=== PATIENT | female | born 1950 | race Caucasian/White ===

== ENCOUNTER 2019-11-03 19:06 | Emergency (ER) | payer MEDICARE, OTHER ==
--- NOTE | 2019-11-03 21:01 | EDM.PDOC ---
ED HPI GENERAL MEDICAL PROBLEM - General Chief Complaint: Upper Extremity Injury/Pain Stated Complaint: FALL Time Seen by Provider: 11/03/19 19:06 Source of Information: Reports: Patient, Family History Limitations: Reports: No Limitations - History of Present Illness INITIAL COMMENTS - FREE TEXT/NARRATIVE: This is a 68yo F who fell at home and ran into the wall. She noticed severe left arm pain with movement immediately after the fall. She denies any other injuries but did bump her head and neck. She denies any PMH or medications. Onset: Sudden Location: Reports: Upper Extremity, Left Quality: Reports: Ache, Stabbing Severity: Severe (only with movement) Improves with: Reports: Immobilization Worsens with: Reports: Movement Associated Symptoms: Reports: No Other Symptoms Treatments STONEMASON SUPERVISOR: Reports: Other (see below) Other Treatments STONEMASON SUPERVISOR: iburprofen 200mg - Related Data Allergies Allergy/AdvReac Type Severity Reaction Status Date / Time No Known Allergies Allergy Verified 11/03/19 19:09 Home Meds: Home Meds NK [No Known Home Meds] 11/03/19 [History] Past Medical History Respiratory History: Reports: Other (See Below) Other Respiratory History: bronchiolitis obliterans Musculoskeletal History: Reports: Back Pain, Chronic - Past Surgical History Musculoskeletal Surgical History: Reports: Other (See Below) Other Musculoskeletal Surgeries/Procedures:: right radial head crushed with rods implanted Social & Family History - Tobacco Use Smoking Status *Q: Never Smoker Second Hand Smoke Exposure: Yes - Caffeine Use Caffeine Use: Reports: Tea - Recreational Drug Use Recreational Drug Use: No Review of Systems - Review of Systems Review Of Systems: Comprehensive ROS is negative, except as noted in HPI. ED EXAM, GENERAL - Physical Exam Exam: See Below Exam Limited By: No Limitations General Appearance: Alert, WD/WN, Moderate Distress Eye Exam: Bilateral Eye: EOMI, PERRL Ears: Normal External Exam Nose: Normal Inspection Throat/Mouth: Normal Inspection Head: Atraumatic, Normocephalic Neck: Normal Inspection Respiratory/Chest: No Respiratory Distress, Lungs Clear, Normal Breath Sounds Cardiovascular: Normal Peripheral Pulses, Regular Rate, Rhythm Peripheral Pulses: 2+: Brachial (L), Brachial (R), Radial (L), Radial (R), Dorsalis Pedis (L), Dorsalis Pedis (R) Extremities: Arm Pain (left proximal humerus pain) Neurological: Alert, Oriented, No Motor/Sensory Deficits Psychiatric: Normal Affect, Normal Mood Skin Exam: Warm, Dry, Intact Course - Vital Signs Last Recorded V/S: Last Vital Signs Temp 36.5 C 11/03/19 19:10 Pulse 85 11/03/19 19:10 Resp 16 11/03/19 19:10 BP 173/81 H 11/03/19 19:10 Pulse Ox 98 11/03/19 19:10 - Orders/Labs/Meds Orders: Active Orders 24 hr Category Date Time Status Humerus Lt [CR] Stat Exams 11/03/19 19:17 Taken Departure - Departure Time of Disposition: 20:30 Disposition: Home, Self-Care 01 Condition: Good Clinical Impression: Fracture of humerus Qualifiers: Encounter type: initial encounter Humerus Location: proximal Fracture type: closed Fracture morphology: other fracture Fracture alignment: displaced Laterality: left Qualified Code(s): S42.292A - Other displaced fracture of upper end of left humerus, initial encounter for closed fracture - Discharge Information Instructions: Humerus Fracture Treated With Immobilization, [id number] Forms: ED Department Discharge Additional Instructions: use splint x 3months. use tylenol/ibuprofen for pain. return to ER/clinic if you have any questions, require re-assessment for pain control Sepsis Event Note - Evaluation Sepsis Screening Result: No Definite Risk - Focused Exam Vital Signs: Vital Signs Temp Pulse Resp BP Pulse Ox 11/03/19 19:10 36.5 C 85 16 173/81 H 98 Date Exam was Performed: 11/03/19 Time Exam was Performed: 20:55 - Problem List & Annotations (1) Fracture of humerus SNOMED Code(s): 61704411 Code(s): S42.309A - UNSP FRACTURE OF SHAFT OF HUMERUS, UNSP ARM, INIT Status: Acute Qualifiers: Encounter type: initial encounter Humerus Location: proximal Fracture type: closed Fracture morphology: other fracture Fracture alignment: displaced Laterality: left Qualified Code(s): S42.292A - Other displaced fracture of upper end of left humerus, initial encounter for closed fracture - Problem List Review Problem List Initiated/Reviewed/Updated: Yes - My Orders Last 24 Hours: My Active Orders 11/03/19 19:17 Humerus Lt [CR] Stat - Assessment/Plan Last 24 Hours: My Active Orders 11/03/19 19:17 Humerus Lt [CR] Stat Plan: Consulted Dr. Theodore and images sent to [facility]. Dr. Theodore notes treatment and f/u with him in 1 week on Sunday. He notes that no other management needed except for cuff and collar. Dr. Theodore states he has reviewed the images and these are his recommendations. Discussed with patient and counseled on these instructions. F/u as needed and as directed. Rtc or ER if any changes to symptoms.
--- NOTE | 2019-11-04 09:05 | CR ---
Date of Service: 11/03/19 Clinical Data: fall LEFT HUMERUS: No priors. There is a mildly displaced comminuted fracture through the metaphysis and neck of the proximal humerus. No other acuter abnormalities. [id number] MTDD
== END 2019-11-03 20:20 | disposition home or self-care (01) ==
LOC: LB.ED 19:06
DX: S42.292A Other displaced fracture of upper end of left humerus, initial encounter for closed fracture (principal); W01.198A Fall on same level from slipping, tripping and stumbling with subsequent striking against other object, initial encounter; Y93.02 Activity, running; Y92.009 Unspecified place in unspecified non-institutional (private) residence as the place of occurrence of the external cause
CPT/HCPCS: 73060-LT; 99283; 99283-25